=== PATIENT | female | born 1975 | race Caucasian/White ===

== ENCOUNTER 2018-12-25 10:15 | Emergency (ER) | payer OTHER ==
[~2018-12-25] VITALS: Ht 162.6 cm; Wt 87.1 kg
[2018-12-25 10:25] VITALS: Ht 162.6 cm; Wt 87.1 kg
[2018-12-25 12:23] LABS: BASOPHIL % 1.2 % (0-2); PLATELET COUNT 264 x10^3mcL (130-400); RED CELL DISTRIBUTION WIDTH 13.7 % (11.5-14.5)
[2018-12-25 12:35] LABS: CARBON DIOXIDE 30.3 mmol/L (21-32); CHLORIDE SERUM 100 mmol/L (98-107); CREATININE SERUM 0.7 mg/dL (0.6-1.0); GFR1 > 60 mL/min; GLUCOSE SERUM 99 mg/dL (74-106); POTASSIUM SERUM 3.2 mmol/L (3.5-5.1); SODIUM SERUM 139 mmol/L (136-145)
[2018-12-25 12:40] LABS: ALBUMIN 3.7 g/dL (3.4-5.0); ALKALINE PHOSPHATASE 66 U/L (46-116); ALT/SGPT 43 U/L (14-59); AST/SGOT 22 U/L (15-37); BILIRUBIN TOTAL 0.7 mg/dL (0.20-1.00)
[2018-12-25 12:42] LABS: TOTAL PROTEIN, SERUM 8.3 g/dL (6.4-8.2)
[2018-12-25 14:17] VITALS: BP 124/87
== END 2018-12-25 14:17 | disposition home or self-care (01) ==
LOC: ED 10:15
PROVIDERS: Emergency Medicine
DX: F41.9 Anxiety disorder, unspecified (principal); R07.89 Other chest pain; I10 Essential (primary) hypertension
CPT/HCPCS: 36415

== ENCOUNTER 2019-03-10 04:15 | Emergency (ER) | payer OTHER ==
[~2019-03-10] VITALS: Ht 162.6 cm; Wt 87.5 kg
[2019-03-10 04:21] VITALS: Ht 162.6 cm; Wt 87.5 kg
[2019-03-10 04:59] LABS: BASOPHIL % 0.4 % (0-2); PLATELET COUNT 198 x10^3mcL (130-400); RED CELL DISTRIBUTION WIDTH 13.2 % (11.5-14.5)
[2019-03-10 05:05] LABS: CALCIUM 8.9 mg/dL (8.5-10.1); CARBON DIOXIDE 25.7 mmol/L (21-32); CHLORIDE SERUM 104 mmol/L (98-107); CREATININE SERUM 0.7 mg/dL (0.6-1.0); GFR1 > 60 mL/min; GLUCOSE SERUM 97 mg/dL (74-106); POTASSIUM SERUM 3.5 mmol/L (3.5-5.1); SODIUM SERUM 139 mmol/L (136-145)
[2019-03-10 05:39] LABS: UA SPECIFIC GRAVITY <=1.005 (1.005-1.035); microscopic required? YES; urine erythrocyte 3+ (NEGATIVE)
[2019-03-10 06:11] VITALS: BP 114/64
== END 2019-03-10 06:11 | disposition home or self-care (01) ==
LOC: ED 04:15
PROVIDERS: Emergency Medicine
DX: N20.1 Calculus of ureter (principal); I10 Essential (primary) hypertension; F41.9 Anxiety disorder, unspecified; Z98.890 Other specified postprocedural states
CPT/HCPCS: J1885; J2270; J2405; J7030

== ENCOUNTER 2020-03-28 18:57 | Emergency (ER) | payer OTHER ==
[~2020-03-28] VITALS: Ht 162.6 cm; Wt 85.3 kg
[2020-03-28 19:35] VITALS: Ht 162.6 cm; Wt 85.3 kg
[2020-03-29 00:13] VITALS: BP 112/56
== END 2020-03-29 00:13 | disposition home or self-care (01) ==
LOC: ED 18:57
DX: H81.12 Benign paroxysmal vertigo, left ear (principal); R51 Headache; I10 Essential (primary) hypertension; R20.2 Paresthesia of skin
CPT/HCPCS: J1885; J8597